=== PATIENT | female | born 1955 | race Caucasian/White ===

== ENCOUNTER → 2021-01-10 16:04 | Outpatient (CLI) | payer MEDICARE, MEDICAID, SELFPAY ==
--- NOTE | 2021-01-10 16:11 | XR_ITS ---
PROCEDURE: XR CHEST 2V CLINICAL HISTORY: left sided chest pain COMPARISON: No exams were available for comparison FINDINGS: The cardiomediastinal silhouette and pulmonary vascularity are within normal limits. The lungs are clear without infiltrates, suspicious nodules, or pleural effusions. There is a right suprahilar and paratracheal mass possibly secondary to adenopathy but certainly neoplastic disease cannot be excluded. Recommend follow-up CT scan chest for better evaluation since there are no previous studies for comparison. There are sternal wire sutures and surgical clips from previous CABG. No acute bony abnormalities. IMPRESSION: Right suprahilar and paratracheal somewhat lobulated mass and I somewhat favor adenopathy but neoplastic disease is a consideration and suggest follow-up CT scan of the chest as indicated above Dictated by: Dr. Adan Howard MD 01/11/2021 07:43 Dr. Adan Howard MD in [facility] 01/11/2021 07:43
--- NOTE | 2021-01-10 16:11 | XR_ITS ---
PROCEDURE: XR THORACIC SPINE 3V CLINICAL INDICATION: back pain COMPARISON: No exams were available for comparison FINDINGS: There is normal curvature and alignment. Mild multilevel degenerate changes are seen in the lower thoracic spine. There is no paraspinal mass. IMPRESSION: Mild degenerative changes, no acute pathology noted Dictated by: Dr. Adan Howard MD 01/11/2021 07:46 Dr. Adan Howard MD in [facility] 01/11/2021 07:46
== END ==
PROVIDERS: PCP Family Medicine; Visit Provider Family Medicine
DX: M54.9 Dorsalgia, unspecified (principal); M54.6 Pain in thoracic spine; Z72.0 Tobacco use
CPT/HCPCS: 71046; 72072

== ENCOUNTER → 2021-01-27 11:25 | Outpatient (CLI) | payer MEDICARE, MEDICAID, SELFPAY ==
[2021-01-27 12:37] LABS: Blood Urea Nitrogen 7 mg/dl (7-17); Estimated Glomerular Filt Rate 100 ml/min (>60); GFR (African American) 121 ML/MIN (>60)
== END ==
PROVIDERS: Visit Provider Family Medicine
DX: R93.89 Abnormal findings on diagnostic imaging of other specified body structures (principal)
CPT/HCPCS: 36415; 82565; 84520

== ENCOUNTER → 2021-01-31 13:33 | Outpatient (CLI) | payer MEDICARE, MEDICAID, SELFPAY ==
--- NOTE | 2021-01-31 13:33 | CT_ITS ---
PROCEDURE: CT CHEST W CON CLINCAL INDICATION: Abnormal chest xray COMPARISON: CR XR CHEST 2V from 01/10/2021 TECHNIQUE: IV Contrast: 75ml Isovue 370 Axial images obtained with sagittal and coronal reformats. All CT scans at the facility use one or more dose reduction, viz: automated exposure control, ma/kV adjustment per patient size (including targeted exams where dose is matched to indication, i.e. head), or iterative reconstruction technique. FINDINGS: There is a right suprahilar mass in the right upper lobe centrally measuring 3.8 x 3.4 x 3.5 cm. This is contiguous with the right hilum centrally with some hilar adenopathy noted with a 1.6 by 1.2 cm node anterior to the right mainstem bronchus. The mass occludes the posterior segmental bronchus to the right upper lobe. This should be readily accessible for biopsy by bronchoscopy. This is highly suspicious for lung cancer. There is a small pretracheal node at 0.9 by 0.6 cm. A 0.9 x 0.6 cm node is present to the right of the ascending aorta no contralateral nodes are present. There are COPD changes. There has been a prior CABG. Along the inferior and posterior aspect of the right lung mass there is a small area of cavitation with some nodularity along the posterior aspect of the cavitation. This region measures 1.9 x 0.5 cm. Upper abdominal images demonstrates a well-circumscribed hypodense lesion in the left hepatic lobe posteriorly segment 4 B at 1.5 cm. This could represent a cyst. There is a small hiatal hernia. 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 IMPRESSION: Right suprahilar mass contiguous with the right hilum consistent with lung carcinoma with a few mediastinal lymph nodes. These nodes are indeterminate size barajas. There is mild right hilar adenopathy. No contralateral mediastinal or hilar adenopathy. Suggest pulmonology consult. Small area of septated cavitation along the posterior aspect of the mass which could be continuation of the mass. This is limited to the right upper lobe 1.5 cm left hepatic lobe cystic lesion Dictated by: Jong Perez MD 02/01/2021 11:35 Jong Perez MD in [facility] 02/01/2021 11:35
== END ==
PROVIDERS: PCP Family Medicine; Visit Provider Family Medicine
DX: R93.89 Abnormal findings on diagnostic imaging of other specified body structures (principal)
CPT/HCPCS: 71260; Q9967

== ENCOUNTER → 2021-04-01 07:46 | Outpatient (CLI) | payer MEDICARE, MEDICAID, SELFPAY ==
[2021-04-01 08:56] LABS: Basophils # 0.1 K/mm3 (0-0.2); Basophils % 1.1 % (0.1-2.0); Eosinophils # 0.2 K/mm3 (0.0-0.4); Eosinophils % 2.1 % (0.1-12.0); Hematocrit 45.5 % (37.0-47.0); Hemoglobin 14.7 g/dL (12.2-16.2); Lymphocytes # 2.2 K/mm3 (0.7-4.5); Lymphocytes % 24.5 % (10-50); Mean Corpuscular HGB Conc 32.2 g/dL (31.8-35.4); Mean Corpuscular Hemoglobin 32.3 pg (27.0-31.2); Mean Corpuscular Volume 100.1 fl (81-99); Mean Platelet Volume 7.8 fl (7.4-10.4); Monocytes # 0.9 K/mm3 (0.1-1.0); Monocytes % 10.1 % (1.7-9.3); Neutrophils # 5.6 K/mm3 (1.8-7.8); Neutrophils % 62.2 % (37.0-80.0); Platelet Count 367 K/mm3 (142-424); Red Blood Count 4.54 M/mm3 (4.20-5.40); Red Cell Distribution Width 13.6 % (11.5-17.5)
[2021-04-01 09:12] LABS: INR 1.01 (0.9-1.1); Prothrombin Time 11.4 seconds (10.1-12.5)
== END ==
PROVIDERS: PCP Family Medicine; Visit Provider Radiology Diagnostic Radiology
DX: Z01.812 Encounter for preprocedural laboratory examination (principal); Z11.52 Encounter for screening for COVID-19; U07.1 COVID-19; C34.91 Malignant neoplasm of unspecified part of right bronchus or lung; R09.89 Other specified symptoms and signs involving the circulatory and respiratory systems; Z51.81 Encounter for therapeutic drug level monitoring
CPT/HCPCS: 36415; 85025; 85610; C9803; U0003; U0005

== ENCOUNTER → 2021-08-26 15:22 | Outpatient (CLI) | payer MEDICARE, MEDICAID, SELFPAY ==
--- NOTE | 2021-08-26 15:33 | XR_ITS ---
FINAL REPORT CLINICAL HISTORY: right chest pain, recent lung surgery 18 days ago c/o rt lung pain COMPARISON: January 10, 2021 FINDINGS: Two views of the chest were obtained. There is a new right-sided chest port with the tip in the lower SVC. The heart size and pulmonary vascularity are within normal limits. There is evidence of median sternotomy. There is a small to moderate loculated right hydropneumothorax. The left lung is clear. The bony thorax is intact. IMPRESSION: Small to moderate loculated right hydropneumothorax. Reviewed, Interpreted and Dictated by Ulises Berg III, MD Transcribed by Aria Dutta Authenticated and [facility]
[2021-08-26 18:14] LABS: Adenovirus,PCR Not Detected (NotDetected); Bordetella Pertussis Not Detected (NotDetected); Chlamydophila Pneumoniae, PCR Not Detected (NotDetected); Coronavirus 19, PCR Not Detected (NotDetected); Coronavirus 229E Not Detected (NotDetected); Coronavirus NL63 Not Detected (NotDetected); Coronavirus OC43 Not Detected (NotDetected); Coronovirus HKU1,PCR Not Detected (NotDetected); Human Metapneumovirus Not Detected (NotDetected); Influenza A, PCR Not Detected (NotDetected); Influenza AH1, 2009 Not Detected (NotDetected); Influenza AH1, PCR Not Detected (NotDetected); Influenza AH3,PCR Not Detected (NotDetected); Influenza B, PCR Not Detected (NotDetected); Mycoplasma Pneumoniae, PCR Not Detected (NotDetected); Parainfluenza 1, PCR Not Detected (NotDetected); Parainfluenza 2, PCR Not Detected (NotDetected); Parainfluenza 3, PCR Not Detected (NotDetected); Parainfluenza 4, PCR Not Detected (NotDetected); Respiratory Syncytial Virus Not Detected (NotDetected); Rhinovirus/Enterovirus Not Detected (NotDetected)
== END ==
PROVIDERS: PCP Family Medicine; Visit Provider Family Medicine
DX: R06.02 Shortness of breath (principal); Z20.822 Contact with and (suspected) exposure to COVID-19; J44.9 Chronic obstructive pulmonary disease, unspecified; J45.909 Unspecified asthma, uncomplicated
CPT/HCPCS: 71046; 87581; 87632; 87798; C9803; U0003; U0005

== ENCOUNTER → 2021-08-26 17:07 | Outpatient (CLI) | payer MEDICARE, MEDICAID, SELFPAY | PROVIDERS: Visit Provider Family Medicine | DX: R06.02 Shortness of breath (principal) ==

== ENCOUNTER → 2021-11-07 10:20 | Outpatient (CLI) | payer MEDICARE, MEDICAID, SELFPAY ==
--- NOTE | 2021-11-07 10:24 | XR_ITS ---
FINAL REPORT TECHNIQUE: Chest PA & Lateral CLINICAL HISTORY: lung cancer COMPARISON: August 26, 2021 FINDINGS: Two views of the chest were performed. There is a chest port present with its tip in the SVC. The heart is mildly enlarged. Sternotomy wires are present. There is volume loss in the inferior right hemithorax. The left lung is clear. There are no pleural effusions. There is no pneumothorax. The bony thorax appears intact. IMPRESSION: 1. Mild cardiomegaly. 2. Volume loss in the inferior right hemithorax. Reviewed, Interpreted and Dictated by Jose Francisco Coulter MD Transcribed by Tere Lucia Authenticated and . [facility]
== END ==
PROVIDERS: PCP Family Medicine; Visit Provider Family Medicine
DX: C34.90 Malignant neoplasm of unspecified part of unspecified bronchus or lung (principal)
CPT/HCPCS: 71046

== ENCOUNTER → 2022-01-10 11:45 | Outpatient (CLI) | payer MEDICARE, MEDICAID, SELFPAY ==
[2022-01-10 15:17] LABS: Alanine Aminotransferase 15 U/L (12-78); Albumin Level 4.2 g/dl (3.5-5.0); Albumin/Globulin Ratio 1.6 (1.1-1.8); Alkaline Phosphatase 125 U/L (38-126); Anion Gap 15.4 mEq/L (5-15); Aspartate Amino Transferase 27 U/L (14-36); Bilirubin,Total 0.4 mg/dl (0.2-1.3); Blood Urea Nitrogen 13 mg/dl (7-17); Calcium 9.4 mg/dl (8.4-10.2); Carbon Dioxide 29 mmol/L (22.0-30.0); Chloride 102 mmol/L (98-107); Cholesterol 215 mg/dl (140-200); Estimated Glomerular Filt Rate 83 ml/min (>60); GFR (African American) 101 ML/MIN (>60); Globulin 2.7 g/dL (1.3-3.2); Glucose 91 mg/dl (74-100); HDL Cholesterol 43 mg/dl (40-60); Potassium 4.4 mmoL/L (3.5-5.1); Sodium 142 mmol/L (136-145); Total Protein,Serum 6.9 g/dl (6.3-8.2); Triglycerides 167 mg/dl (30-150); VLDL Cholesterol 33 mg/dL (0-40)
[2022-01-10 15:28] LABS: Direct LDL Cholesterol 129.05 mg/dL (100-129)
== END ==
PROVIDERS: PCP Family Medicine; Visit Provider Family Medicine
DX: E78.5 Hyperlipidemia, unspecified (principal); I25.10 Atherosclerotic heart disease of native coronary artery without angina pectoris
CPT/HCPCS: 80053; 80061

== ENCOUNTER 2022-01-17 13:16 | Outpatient (CLI) | payer MEDICARE, MEDICAID, SELFPAY ==
--- NOTE | 2022-01-17 13:17 | CT_ITS ---
FINAL REPORT TECHNIQUE: Axial CT images of the abdomen were obtained without contrast. Coronal reformatted images were also obtained.This study was performed with techniques to keep radiation doses as low as reasonably achievable (ALARA). Individualized dose reduction techniques using automated exposure control or adjustment of mA and/or kV according to the patient''s size were employed. CLINICAL HISTORY: abdominal pain, hx of lung ca FINDINGS: There is a 17 mm mass in the medial segment of the left hepatic lobe which cannot be accurately characterized without contrast, favor a cyst. The pancreas appears normal. The spleen size is within normal limits. There is a mass in the lower pole of the right kidney measuring 24 mm which cannot be accurately characterized without contrast, favor a cyst. Moderate vascular calcification is identified. There is no evidence of renal stone or hydronephrosis. There is no evidence of adenopathy. No abnormal fluid collection is seen. No localized inflammatory processes identified. IMPRESSION: Favor hepatic and renal cysts. Reviewed, Interpreted and Dictated by Ulises Berg III, MD Transcribed by Jacki Sanchez Authenticated and [facility]
--- NOTE | 2022-01-17 13:55 | CT_ITS ---
FINAL REPORT CLINICAL HISTORY: hx of Lung Cancer COMPARISON: 01/31/2021 FINDINGS: Axial CT images of the chest were obtained with contrast. Coronal reformatted images were also obtained. This study was performed with techniques to keep radiation doses as low as reasonably achievable, (ALARA). Individualized dose reduction techniques using automated exposure control or adjustment of mA and/or KV according to the patient's size were employed. There are small mediastinal nodes. No axillary mass or adenopathy is identified. There are postoperative changes in the right thorax. Small right effusion is identified. There is marked improvement in the medial right thorax mass. There is a small amount of soft tissue in the medial right thorax, favor post treatment change. The patient is status post median sternotomy. Right chest port is present. There is a small hiatal hernia. IMPRESSION: Marked improvement in the medial right thorax mass. No new mass or nodule is identified. Reviewed, Interpreted and Dictated by Ulises Berg III, MD Transcribed by Jacki Sanchez Authenticated and [facility]
== END 2022-01-17 14:29 | disposition home or self-care (01) ==
LOC: RAD 13:17 → INF 14:05
PROVIDERS: PCP Family Medicine; Visit Provider Family Medicine
DX: R10.9 Unspecified abdominal pain (principal); D49.1 Neoplasm of unspecified behavior of respiratory system
CPT/HCPCS: 71260; 74150; J1642; Q9967

== ENCOUNTER 2022-05-18 07:50 | Day surgery (SDC) | payer MEDICARE, MEDICAID, SELFPAY ==
[2022-05-18 10:08] VITALS: BP 142/80; PULSE 76; RESP 18; TEMP 36.8; O2SAT 97; BMI 26.9
[2022-05-18 10:40] VITALS: O2SAT 97
[2022-05-18 10:53] VITALS: BP 110/63; PULSE 70; RESP 16; TEMP 36.8; O2SAT 94
--- NOTE | 2022-05-18 10:53 | [facility].SCOPE ---
Procedure: Date: 05/18/22 Patient Date of :: 1955 Procedure Performed:: EGD & biopsies Indications:: GERD, dyspepsia Performing Provider:: Tia Guadalupe MD Referring Provider:: Harsha Salcedo Sedation:: Propofol Procedure:: The gastroscope was gently passed through the incisoral orifice into the oral cavity and under direct visualization the esophagus was intubated. The endoscope was passed down the esophagus, through the stomach, and into the duodenum. Color, texture, mucosa, and anatomy of the esophagus, stomach, and duodenum were carefully examined with the scope. Findings:: Oropharynx: normal Esophagus: normal EG Junction: moderate sized hiatus hernia, no ulcers Cardia: normal Fundus: normal Body: normal, no evidence of gastritis or ulcer disease Antrum: normal, random biopsies obtained Duodenal bulb: normal Duodenum (second and third portion): normal Impression: Overall normal EGD with moderate sized hiatus hernia symptoms exacerbated by recent systemic chemo therapy Specimens:: gastric Recommendations:: PPI therapy, TUMS, conservative life style modifications Complications:: None Estimated blood obtained (mL): 0
--- NOTE | 2022-05-18 10:56 | P.PN_ITS ---
[facility] Disclaimer: The information contained in this section may have been updated after the patient was seen, as this information can be updated by other users. Medical History Anxiety CAD (coronary artery disease) COPD (chronic obstructive pulmonary disease) Essential hypertension GERD (gastroesophageal reflux disease) History of breast cancer HLD (hyperlipidemia) Surgical History History of cholecystectomy History of hysterectomy History of placement of ear tubes Family History Other Family history of cancer Family history of cerebral aneurysm Family history of diabetes mellitus type II Social History Smoking Status: Former smoker quit date: 04/27/21 alcohol intake: never substance use type: denies use current occupational status: retired Travel in the last 8 weeks: None household members: none housing: apartment lives independently: Yes marital status: education level: middle school special jennyfer needs: No agree to transfusion: No do you feel safe at home: Yes victim of physical abuse: No victim of emotional abuse: No victim of sexual abuse: No would you like helpful sources: No [facility] Anesthesia Checklist Patient Identification Patient Identification: Verbal (Name & ) Structural Data Admitted From: Home Planned Operative Procedure/s: egd Consent for Planned Operative Procedure(s) Verified: Yes Airway Assessment C-Spine Mobility Assessed: Yes TMJ Mobility Assessed: Yes Dentition: Edentulous Neurological Assessment Level of Consciousness: Awake, Alert and Appropriate Anesthesia Plan Anesthesia Risk discussed: Yes Anesthesia Plan: Verified ASA Class: III Anesthesia Type: MAC
[2022-05-18 11:03] VITALS: BP 102/66; PULSE 69; RESP 16; O2SAT 98
[2022-05-18 11:13] VITALS: BP 127/72; PULSE 67; RESP 18; O2SAT 99
[2022-05-18 11:23] VITALS: BP 115/60; PULSE 70; RESP 18; TEMP 36.8; O2SAT 98
== END 2022-05-18 11:25 | disposition home or self-care (01) ==
PROVIDERS: PCP Family Medicine; Visit Provider Internal Medicine Gastroenterology
PROC: 0DJ08ZZ Inspection of Upper Intestinal Tract, Via Natural or Artificial Opening Endoscopic (ICD-10-PCS; CPT 43235; principal; 2022-05-18 11:00)
DX: K21.9 Gastro-esophageal reflux disease without esophagitis (principal); K30 Functional dyspepsia; K44.9 Diaphragmatic hernia without obstruction or gangrene; Z79.899 Other long term (current) drug therapy
CPT/HCPCS: 43235; 88305; J1642

== ENCOUNTER → 2022-08-21 15:15 | Outpatient (CLI) | payer MEDICARE, MEDICAID, SELFPAY ==
[2022-08-21 19:28] LABS: Basophils # 0.1 K/mm3 (0-0.2); Basophils % 0.7 % (0.1-2.0); Eosinophils # 0.1 K/mm3 (0.0-0.4); Hematocrit 40.7 % (37.0-47.0); Hemoglobin 13.2 g/dL (12.2-16.2); Lymphocytes # 2.3 K/mm3 (0.7-4.5); Lymphocytes % 33.6 % (10-50); Mean Corpuscular HGB Conc 32.5 g/dL (31.8-35.4); Mean Corpuscular Hemoglobin 30.9 pg (27.0-31.2); Mean Corpuscular Volume 95.2 fl (81-99); Mean Platelet Volume 7.7 fl (7.4-10.4); Monocytes # 0.6 K/mm3 (0.1-1.0); Monocytes % 8.4 % (1.7-9.3); Neutrophils # 3.7 K/mm3 (1.8-7.8); Neutrophils % 55.3 % (37.0-80.0); Platelet Count 250 K/mm3 (142-424); Red Blood Count 4.27 M/mm3 (4.20-5.40); White Blood Count 6.8 K/mm3 (4.8-10.8)
[2022-08-21 19:36] LABS: Chloride 103 mmol/L (98-107); Potassium 4.6 mmoL/L (3.5-5.1); Sodium 139 mmol/L (136-145)
[2022-08-21 19:38] LABS: Blood Urea Nitrogen 14 mg/dl (7-17); Estimated Glomerular Filt Rate 71 ml/min (>60); GFR (African American) 86 ML/MIN (>60)
[2022-08-21 19:39] LABS: Alanine Aminotransferase 21 U/L (12-78); Albumin Level 4.2 g/dl (3.5-5.0); Albumin/Globulin Ratio 1.5 (1.1-1.8); Alkaline Phosphatase 117 U/L (38-126); Anion Gap 14.6 mEq/L (5-15); Aspartate Amino Transferase 40 U/L (14-36); Bilirubin,Total 0.4 mg/dl (0.2-1.3); Calcium 9.3 mg/dl (8.4-10.2); Carbon Dioxide 26 mmol/L (22.0-30.0); Globulin 2.8 g/dL (1.3-3.2); Glucose 106 mg/dl (74-100); Magnesium 1.8 mg/dl (1.6-2.3)
== END ==
LOC: LAB.DROPOF 08-22 08:56
PROVIDERS: PCP Family Medicine; Visit Provider Family Medicine
DX: I10 Essential (primary) hypertension (principal); R30.0 Dysuria
CPT/HCPCS: 80053; 83735; 85025; 87086

== ENCOUNTER → 2023-02-23 08:55 | Outpatient (CLI) | payer MEDICARE, MEDICAID, SELFPAY ==
[2023-02-23 18:14] LABS: Basophils % 0.4 % (0.1-2.0); Eosinophils # 0.2 K/mm3 (0.0-0.4); Eosinophils % 2.9 % (0.1-12.0); Hematocrit 42.1 % (37.0-47.0); Lymphocytes # 2.2 K/mm3 (0.7-4.5); Lymphocytes % 32.1 % (10-50); Mean Corpuscular HGB Conc 33.3 g/dL (31.8-35.4); Mean Corpuscular Hemoglobin 32.7 pg (27.0-31.2); Mean Corpuscular Volume 98.1 fl (81-99); Mean Platelet Volume 8.6 fl (7.4-10.4); Monocytes # 0.6 K/mm3 (0.1-1.0); Monocytes % 8.2 % (1.7-9.3); Neutrophils # 3.9 K/mm3 (1.8-7.8); Neutrophils % 56.5 % (37.0-80.0); Platelet Count 293 K/mm3 (142-424); Red Blood Count 4.29 M/mm3 (4.20-5.40); Red Cell Distribution Width 13.7 % (11.5-17.5); White Blood Count 6.9 K/mm3 (4.8-10.8)
[2023-02-23 18:41] LABS: Alanine Aminotransferase 24 U/L (12-78); Albumin/Globulin Ratio 1.4 (1.1-1.8); Alkaline Phosphatase 133 U/L (38-126); Anion Gap 11.4 mEq/L (5-15); Aspartate Amino Transferase 35 U/L (14-36); Bilirubin,Total 0.4 mg/dl (0.2-1.3); Blood Urea Nitrogen 15 mg/dl (7-17); Calcium 8.9 mg/dl (8.4-10.2); Carbon Dioxide 27 mmol/L (22.0-30.0); Chloride 105 mmol/L (98-107); Chol/HDL Ratio 7.1 (1-3.5); Cholesterol 233 mg/dl (140-200); Estimated Glomerular Filt Rate 71 ml/min (>60); GFR (African American) 86 ML/MIN (>60); Globulin 2.9 g/dL (1.3-3.2); Glucose 98 mg/dl (74-100); HDL Cholesterol 33 mg/dl (40-60); Potassium 4.4 mmoL/L (3.5-5.1); Sodium 139 mmol/L (136-145); Total Protein,Serum 6.9 g/dl (6.3-8.2); Triglycerides 253 mg/dl (30-150); VLDL Cholesterol 51 mg/dL (0-40)
[2023-02-23 18:52] LABS: Direct LDL Cholesterol 140.71 mg/dL (100-129)
[2023-02-23 19:12] LABS: Thyroid Stimulating Hormone 2.35 uIU/mL (0.465-4.68)
[2023-02-23 20:43] LABS: Hemoglobin A1C 5.6 % (4.0-6.0)
[2023-03-03 19:09] LABS: 1,25 Dihydroxy Vitamin D 74 pg/mL (.); 1,25-Dihydroxy, Vitamin D-2 <10 pg/mL (.); 1,25-Dihydroxy, Vitamin D-3 72 pg/mL (.)
== END ==
PROVIDERS: Family Medicine; PCP Family Medicine; Visit Provider Family Medicine
DX: J44.9 Chronic obstructive pulmonary disease, unspecified (principal); Z00.00 Encounter for general adult medical examination without abnormal findings; I25.10 Atherosclerotic heart disease of native coronary artery without angina pectoris; R93.89 Abnormal findings on diagnostic imaging of other specified body structures; Z86.39 Personal history of other endocrine, nutritional and metabolic disease; E67.3 Hypervitaminosis D; Z79.899 Other long term (current) drug therapy
CPT/HCPCS: 80053; 80061; 82652; 83036; 84443; 85025

== ENCOUNTER 2024-01-24 15:00 | Outpatient (CLI) | payer MEDICARE, MEDICAID, SELFPAY | END 2024-01-24 23:59 | disposition home or self-care (01) | LOC: LAB.DROPOF 01-25 08:28 | PROVIDERS: PCP Nurse Practitioner; Visit Provider Nurse Practitioner | DX: R10.9 Unspecified abdominal pain (principal) | CPT/HCPCS: 87086 ==

== ENCOUNTER 2024-01-31 21:05 | Outpatient (CLI) | payer MEDICARE, MEDICAID, SELFPAY ==
[2024-02-02 18:54] LABS: H. pylori Stool Ag, EIA Negative (Negative)
== END 2024-01-31 23:59 | disposition home or self-care (01) ==
LOC: LAB 21:06
PROVIDERS: PCP Nurse Practitioner; Visit Provider Nurse Practitioner
DX: K92.2 Gastrointestinal hemorrhage, unspecified (principal)
CPT/HCPCS: 87338

== ENCOUNTER 2024-02-18 12:19 | Outpatient (CLI) | payer MEDICARE, MEDICAID, SELFPAY ==
[2024-02-18 13:04] LABS: Basophils % 0.6 % (0.1-2.0); Eosinophils # 0.2 K/mm3 (0.0-0.4); Eosinophils % 2.4 % (0.1-12.0); Hematocrit 35.7 % (37.0-47.0); Hemoglobin 11.8 g/dL (12.2-16.2); Lymphocytes # 1.5 K/mm3 (0.7-4.5); Lymphocytes % 21.7 % (10-50); Mean Corpuscular HGB Conc 32.9 g/dL (31.8-35.4); Mean Corpuscular Hemoglobin 29.8 pg (27.0-31.2); Mean Corpuscular Volume 90.7 fl (81-99); Mean Platelet Volume 7.3 fl (7.4-10.4); Monocytes # 0.5 K/mm3 (0.1-1.0); Monocytes % 7.4 % (1.7-9.3); Neutrophils # 4.6 K/mm3 (1.8-7.8); Neutrophils % 67.9 % (37.0-80.0); Platelet Count 329 K/mm3 (142-424); Red Blood Count 3.94 M/mm3 (4.20-5.40); Red Cell Distribution Width 14.6 % (11.5-17.5); White Blood Count 6.8 K/mm3 (4.8-10.8)
[2024-02-18 13:24] LABS: Iron 45 ug/dL (37-170)
[2024-02-18 13:34] LABS: Total Iron Binding Capacity 356 ug/dL (265-497)
[2024-02-18 14:01] LABS: Ferritin 28.2 ng/ml (11.1-264)
== END 2024-02-18 23:59 | disposition home or self-care (01) ==
LOC: LAB 12:21
PROVIDERS: PCP Family Medicine; Visit Provider Nurse Practitioner Family
DX: K92.0 Hematemesis (principal)
CPT/HCPCS: 36415; 82728; 83540; 83550; 85025

== ENCOUNTER 2024-03-06 11:59 | Outpatient (CLI) | payer MEDICARE, MEDICAID, SELFPAY | END 2024-03-06 23:59 | disposition home or self-care (01) | LOC: LAB 12:00 | PROVIDERS: Visit Provider Nurse Practitioner Family | DX: Z02.9 Encounter for administrative examinations, unspecified (principal) ==